=== PATIENT | female | born 1965 | race Caucasian/White ===

== ENCOUNTER 2021-04-03 14:40 | Emergency (ER) | payer MEDICARE, OTHER ==
[2021-04-03 16:26] LABS: BASOPHIL 1.1 % (0-2); EOSINOPHIL 0.8 % (0-5); HCT 51.8 % (37.0-47.0); LYMPHOCYTE 23.8 % (15-48); MCH 30.2 pg (25.0-31.0); MCHC 32.8 g/dL (32.0-36.0); MONOCYTE 18.4 % (0-12); MPV 11.7 fL (6.0-9.5); NEUTROPHIL 55.3 % (41-80); NRBC 0; PLT 234 K/uL (150-400); RBC 5.63 M/uL (4.20-5.40); RDW 13.7 % (11.5-14.0); WBC 7.1 K/uL (4.0-10.5)
[2021-04-03 16:40] LABS: BILIRUBIN - TOTAL 0.3 mg/dL (0.2-1.0); BUN/CREAT RATIO (CALC) 12.9 RATIO; CREATININE 0.93 mg/dL (0.51-0.95); GLOBULIN (CALCULATION) 3.4 g/dL; MAGNESIUM 1.8 mg/dL (1.8-2.4); TOTAL PROTEIN 7.4 g/dL (6.4-8.2)
[2021-04-03 16:53] LABS: BILIRUBIN 1+ mg/dL (NEGATIVE); BLOOD 2+ Ery/uL (NEGATIVE); CLARITY CLEAR (CLEAR); COLOR YELLOW (YELLOW); GLUCOSE (U) NORMAL (NORMAL); LEUKOCYTES NEGATIVE Leu/uL (NEGATIVE); NITRITE NEGATIVE (NEGATIVE); PROTEIN TRACE (LOW) mg/dL (NEGATIVE); SPECIFIC GRAVITY >=1.030 (1.001-1.030); UROBILINOGEN 0.2 mg/dL (0.2-1.0); pH 5.5 (5.0-9.0)
[2021-04-03 17:14] LABS: URINARY WBC RARE
[2021-04-03 17:15] LABS: BACTERIA 2+
== END 2021-04-03 18:12 | disposition home or self-care (01) ==
LOC: FER 14:40
PROVIDERS: Emergency Medicine
DX: R69 Illness, unspecified (principal); R53.83 Other fatigue; R42 Dizziness and giddiness; F17.200 Nicotine dependence, unspecified, uncomplicated; Z88.0 Allergy status to penicillin; Z88.1 Allergy status to other antibiotic agents; Z90.710 Acquired absence of both cervix and uterus
CPT/HCPCS: 36415; 71045; 80053; 81001; 83540; 83735; 85025; 93005